=== PATIENT | female | born 2000 | race Caucasian/White ===

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

== ENCOUNTER → 2020-08-01 | Outpatient (CLI) | payer BC ==
[~2020-08-01] MED LIST changes: +CYMBALTA20 MG PO
--- NOTE | ~2020-08-01 | EEG ---
[address] [address] EEG STUDY REPORT Name: ERWIN STEINBERG Room: [facility]#: [id number] Admission: 08/01/20 Attend Phys: Truong Burns MD Discharge: Date of : 00 Report #: [id number] THIS REPORT FOR: cc: Truong Burns MD, Meng MD Khosla,Josh Little MD ~ REASON FOR STUDY: This patient is being evaluated for syncope. TECHNIQUE: EEG was done by placing the electrodes by standard 10-20 system of electrode placement. Both referential and sequential montages were used for recording. FINDINGS: Background activity in this patient's EEG is about 11 Hz and 50 microvolt. The patient became drowsy and that is associated with bilateral slowing and vertex sharp waves. Photic stimulation is unremarkable. Throughout the record, no active epileptiform activity was noticed. IMPRESSION: This patient's EEG is within normal limits. Thank you very much for this referral. By: [id number] Mcgraw MD /nt
== END ==
LOC: M.CRD 12:55
PROVIDERS: ATTEND Internal Medicine
DX: R55 Syncope and collapse (principal); R56.9 Unspecified convulsions

== ENCOUNTER 2020-10-13 15:58 | Emergency (ER) | payer BC ==
[~2020-10-13] VITALS: Ht 172.7 cm; Wt 68.0 kg
[2020-10-13 16:44] LABS: ABSOLUTE LYMPHOCYTES 2.2 thou/uL (0.8-5.3); ABSOLUTE MONOCYTES 0.6 thou/uL (0.0-1.2); ABSOLUTE NEUTROPHILS 3.8 thou/uL (1.6-8.1); BASOPHILS 0.3 %; HEMATOCRIT 38.5 % (37.0-47.0); HEMOGLOBIN 13.8 gm/dL (12.0-15.0); LYMPHOCYTES 33.6 %; MCH 32.4 pg (26.0-34.0); MCHC 35.8 g/dL (28.0-37.0); MCV 90.4 fL (80.0-100.0); MONOCYTES 8.5 %; MPV 8.6 fl. (7.2-11.1); NUCLEATED RBCS 0 /100WBC; PLATELET COUNT* 284 thou/uL (150-400); POLYS 57.6 %; RBC 4.26 mil/uL (4.20-5.00); RDW-CV 12.3 % (10.5-14.5); WBC 6.6 thou/uL (4.0-11.0)
[2020-10-13 16:52] LABS: CALCIUM 8.8 mg/dL (8.5-10.1); CREATININE 0.8 mg/dL (0.6-1.3); POTASSIUM 4.2 mmol/L (3.5-5.1)
[2020-10-13 16:56] LABS: TOTAL BILIRUBIN 0.7 mg/dL (<0.1-1.0); TOTAL PROTEIN 7.6 g/dL (6.4-8.2)
[2020-10-13 17:19] LABS: URINE BILIRUBIN NEGATIVE (Negative); URINE BLOOD NEGATIVE (Negative); URINE CLARITY CLEAR; URINE COLOR YELLOW; URINE GLUCOSE-RANDOM NEGATIVE (Negative); URINE KETONES NEGATIVE (Negative); URINE LEUKOCYTES 2+ (Negative); URINE NITRITE NEGATIVE (Negative); URINE PROTEIN NEGATIVE (Negative); URINE SPECIFIC GRAVITY 1.015 (1.005-1.030)
[2020-10-13 17:24] LABS: AMP/METHAMP Negative (Negative); BARBITURATES Negative (Negative); BENZODIAZEPINES Negative (Negative); COCAINE Negative (Negative); METHADONE Negative (Negative); OPIATES Negative (Negative); PCP Negative (Negative); SQUAMOUS >10 Many /LPF (0-3); THC POSITIVE (Negative)
[2020-10-13 17:25] LABS: URINE WBC >25 Many /HPF (0-5)
[2020-10-13 17:34] LABS: CASTS None Seen /LPF (None Seen); CRYSTALS None Seen /LPF (None Seen); URINE RBC 0-2 Rare /HPF (0-2)
[2020-10-13 17:59] VITALS: BP 109/79
--- NOTE | 2020-10-15 10:21 | EKG ---
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
== END 2020-10-13 18:00 | disposition home or self-care (01) ==
LOC: M.ERS 15:58
PROVIDERS: Emergency Medicine
DX: R56.9 Unspecified convulsions (principal); K21.9 Gastro-esophageal reflux disease without esophagitis; K58.9 Irritable bowel syndrome, unspecified; F17.210 Nicotine dependence, cigarettes, uncomplicated; Z88.0 Allergy status to penicillin

== ENCOUNTER 2021-06-03 13:00 | Emergency (ER) | payer BC ==
[~2021-06-03] VITALS: Ht 172.7 cm; Wt 72.6 kg
[2021-06-03] MEDS ORDERED: DULOXETINE HCL60 MG PO (13:24)
[2021-06-03 14:26] LABS: ABSOLUTE LYMPHOCYTES 2.8 thou/uL (0.8-5.3); ABSOLUTE MONOCYTES 0.5 thou/uL (0.0-1.2); BASOPHILS 0.1 %; HEMATOCRIT 45.8 % (37.0-47.0); MCH 31.7 pg (26.0-34.0); MCV 90.7 fL (80.0-100.0); MONOCYTES 5.1 %; MPV 9.2 fl. (7.2-11.1); NUCLEATED RBCS 0 /100WBC; PLATELET COUNT* 365 thou/uL (150-400); POLYS 64.8 %; RBC 5.05 mil/uL (4.20-5.00); RDW-CV 12.5 % (10.5-14.5); WBC 9.2 thou/uL (4.0-11.0)
[2021-06-03 14:42] LABS: CALCIUM 9.4 mg/dL (8.5-10.1); POTASSIUM 3.6 mmol/L (3.5-5.1)
[2021-06-03 14:47] LABS: ALBUMIN 4.3 g/dL (3.4-5.0); TOTAL BILIRUBIN 0.9 mg/dL (<0.1-1.0); TOTAL PROTEIN 8.3 g/dL (6.4-8.2)
[2021-06-03 16:27] VITALS: BP 143/85
== END 2021-06-03 16:28 | disposition home or self-care (01) ==
LOC: M.ERS 13:00
PROVIDERS: Student in an Organized Health Care Education/Training Program
DX: K59.00 Constipation, unspecified (principal); K21.9 Gastro-esophageal reflux disease without esophagitis; F32.9 Major depressive disorder, single episode, unspecified; F41.9 Anxiety disorder, unspecified; F12.90 Cannabis use, unspecified, uncomplicated; Z79.899 Other long term (current) drug therapy; Z88.0 Allergy status to penicillin